=== PATIENT | male | born 1945 | race Caucasian/White ===

== ENCOUNTER → 2022-05-04 14:07 | Outpatient (CLI) | payer MEDICARE, SELFPAY | PROVIDERS: PCP Emergency Medicine; Visit Provider Specialist | DX: R30.0 Dysuria (principal); N43.3 Hydrocele, unspecified; N40.1 Benign prostatic hyperplasia with lower urinary tract symptoms; Z80.42 Family history of malignant neoplasm of prostate | CPT/HCPCS: 51798; 81002; 87077; 87086; 87186; 99214 ==